=== PATIENT | male | born 1960 | race Caucasian/White ===

== ENCOUNTER 2021-08-08 21:06 | Emergency (ER) | payer BC ==
[2021-08-09 04:10] VITALS: BP 145/85
== END 2021-08-09 06:57 | disposition home or self-care (01) ==
LOC: M ED 21:06
DX: S43.52XA Sprain of left acromioclavicular joint, initial encounter (principal); W01.10XA Fall on same level from slipping, tripping and stumbling with subsequent striking against unspecified object, initial encounter; Y92.410 Unspecified street and highway as the place of occurrence of the external cause